=== PATIENT | female | born 1995 | race Caucasian/White ===

== ENCOUNTER 2023-05-30 04:31 | Inpatient (IN) | payer OTHER, SELFPAY ==
[2023-05-30] VITALS (113 sets, daily range): BP systolic 103–184; BP diastolic 42–107; PULSE 77–131; RESP 14–16; TEMP 36.4–37.1; O2SAT 88–100; BMI 35.5
[2023-05-30] MEDS: ONDANSETRON 2 MG/ML inj 4 MG IV (04:59)
[2023-05-30] MEDS: LACTATED RINGERS 1000 ML 1,000 ML 125 ML IV ×2 (05:00→16:51)
[2023-05-30] MEDS: AMPICILLIN 2 GM in 0.9 % SODIUM CHLORIDE Mini-bag 100 ML IVPB (05:09)
--- NOTE | 2023-05-30 05:41 | PM.ANBPRC ---
PFSH PFSH Social History Smoking Status: Never smoker Meds Home Medications and Allergies Allergies Allergy/AdvReac Type Severity Reaction Status Date / Time pimecrolimus [From Elidel] Allergy Hives Verified 05/30/23 05:35 mold Allergy respiratory Uncoded 05/30/23 05:35 distress oxycodone-acetaminophen Allergy Nausea, Uncoded 05/30/23 05:35 vomiting Results Vital Signs Vital Signs: Last Vital Signs Pulse 87 05/30/23 05:40 BP 142/82 H 05/30/23 05:40 Pulse Ox 98 05/30/23 05:37 Weight: 85.275 kg Height: 154.94 cm Anesthesia Procedures Intrathecal Patient Location: OB Start Time: 05:20 Stop Time: 05:50 Start Date: 05/30/23 Stop Date: 05/30/23 Reason for Block: primary anesthetic Patient Position: sitting Performed By: Cheo Cherry Preanesthetic Checklist: IV checked, risks and benefits discussed and anesthesia consent Prep: patient draped Monitoring: blood pressure monitoring, continuous pulse oximetry and heart rate Approach: midline Vertebral Space: lumbar (1-5) Needle Type: Sprotte Injection Technique: single-shot Needle gauge: 24 Needle Length (cm): 10 cm
--- NOTE | 2023-05-30 05:46 | SUR.ANES ---
medications for ITN were 0.6 mg 0.75%Marcaine and 20 mcg fentanyl
[2023-05-30] MEDS: TERBUTALINE 1 MG/ML INJ 0.25 MG SUBCUT (05:52)
--- NOTE | 2023-05-30 06:21 | PM.OBCN1 ---
OB - CN: HPI Date of Consult Time Seen by Provider: 06:15 Date Seen: 05/30/23 Patient: [facility] Patient Consult date: 05/30/23 Requesting Physician: Alysha Sinha MD Primary Care Provider: Alysha Sinha MD Consult Narrative Narrative: Reyna is a 27 year old at 39.5 weeks gestation that was admitted to the Center on 05/30/23 for active labor. I was called at 0550 notifying that there was a Code White being called for the patient for prolonged deceleration after IT placement. Patient had made rapid change from 5 cm to 8 cm. She is actively checo so I asked for Terbutaline 0.25 mg to be given for tocolysis. By the time I presented to the OR at 0605, strip was cat I, baseline 140s bpm, moderate variability, no deceleration. [place] quiescent with good response to terbutaline. I reviewed her NST: strip was overall cat I prior to 5 minutes prolonged deceleration at 0543 - jessica at 70 bpm. I anticipate deceleration was due to rapid cervical change. This was discussed with patient. Given that she has Cat I strip presently, decision was made to continue expectant management. Rest of care per our family medicine team with OB available for consult. Signed out to Dr. Gaspar, who will be here at 0700. History History 1 Elective abortions Para 0 Spontaneous abortions Hx # Term Pregnancies Ectopic pregnancies Hx # Pregnancies Multiple births Number of Living Children 0 Labs GBS status: positive OB Labs: Lab Assessment Start: 05/30/23 04:41 Freq: ONCE Status: Active Protocol: PC.OBGBS Activity Type Activity Date Activity User E-sign Co-sign Detail Recorded Client Recorded Date Recorded By Document 05/30/23 05:42 [facility] [id number] 05/30/23 05:43 [facility] 05/30/23 05:42 Lab Assessment Maternal Blood Type A Maternal RH Factor Positive Evaluate Maternal Rubella Immune Status Immune Hepatitis B Surface Antigen Negative Maternal HIV Status Negative Maternal Syphillis (RPR) Status Negative [facility] Social History Smoking Status: Never smoker Meds Home Medications and Allergies Allergies Allergy/AdvReac Type Severity Reaction Status Date / Time pimecrolimus [From Elidel] Allergy Hives Verified 05/30/23 05:35 mold Allergy respiratory Uncoded 05/30/23 05:35 distress oxycodone-acetaminophen Allergy Nausea, Uncoded 05/30/23 05:35 vomiting OB - H&P: Exam Physical Exam: Vital signs: Pulse BP Pulse Ox 86 142/67 H 98 05/30/23 05:45 05/30/23 05:45 05/30/23 05:37
--- NOTE | 2023-05-30 06:24 | PM.OBHPLI ---
OB - H&P: HPI Labor/Induction History of Present Illness Time Seen by Provider: 05:40 Date Seen: 05/30/23 Chief Complaint: The patient is a 27 year old 1 para 0 at 39.5 weeks gestation by 1st trimester ultrasound, who presents with contractions starting about 2 am. Chief complaint: Maternity : 1 Para: 0 Narrative: Reyna Garcia is a 27 year old female Comments: She has had an uncomplicated to date. She has felt well. She woke up about 2 am with the onset of painful contractions. She has felt good movement. No leaking fluid. No fevers. No headaches. History of Present Dating criteria: based on 1st trimester US only care: good care Ultrasounds: normal 1st trimester US Medical complications: none Labs Blood type: A (+) positive Rubella: immune RPR/VDLR: nonreactive GBS status: positive HBsAG: negative Review of Systems Status of ROS: Reports: 6 or more systems reviewed and unremarkable except as noted in History and below Meds Home Medications and Allergies Allergies Allergy/AdvReac Type Severity Reaction Status Date / Time pimecrolimus [From Elidel] Allergy Hives Verified 05/30/23 05:35 mold Allergy respiratory Uncoded 05/30/23 05:35 distress oxycodone-acetaminophen Allergy Nausea, Uncoded 05/30/23 05:35 vomiting OB - H&P: Exam Physical Exam: Vital signs: Pulse BP Pulse Ox 86 142/67 H 98 05/30/23 05:45 05/30/23 05:45 05/30/23 05:37 Constitutional: Constitutional: no acute distress Routine Chest/Breast/Axilla Exam: Chest wall: Absent tenderness Routine Respiratory Exam: Respiratory: Present CTA bilaterally Routine Cardiovascular Exam: Cardiovascular: RRR, S1 and S2 Detailed Labor and Delivery Exam: Patient Gravid: Yes Dilation (cm): 8 Effacement (%): 90 Cervix position: anterior Consistency: soft Tachysystole: No Contraction intensity: Strong/Firm Fetus (Single): Station: 0 Amniotic Membrane Status: intact Monitor Accelerations: Present Monitor Decelerations: None Routine Extremities Exam: Extremities: Absent calf tenderness Routine Neurological Exam: Present alert and oriented X3 OB - Problem Based A/P Additional Plan (1) Spontaneous onset of labor: Status: Acute Plan She was 4 cm on admission and quickly progressed to 8 cm. She felt pressure and was very uncomfortable so she got an ITN with great improvement in her pain. Shortly after this she had a deceleration to the 60s that continued for 5 minutes despite 3 position changes. Cervix was unchanged at 8 cm with a bulging bag. A code white was called and she was taken to the OR. A dose of terbutaline was given. She was put on the monitor in the OR and was found to be in the 130s. Strip was reassuring and category 1. OB consulted and felt patient was ok to transfer back to the room. An epidural was placed. Expectant management planned with anticipated. Delivery/Labor/Induction Plan Plan: expectant management
--- NOTE | 2023-05-30 06:52 | P.ANBPRC_ITS ---
PFSH PFSH Social History Smoking Status: Never smoker Meds Home Medications and Allergies Allergies Allergy/AdvReac Type Severity Reaction Status Date / Time pimecrolimus [From Elidel] Allergy Hives Verified 05/30/23 05:35 mold Allergy respiratory Uncoded 05/30/23 05:35 distress oxycodone-acetaminophen Allergy Nausea, Uncoded 05/30/23 05:35 vomiting Results Vital Signs Vital Signs: Last Vital Signs Pulse 86 05/30/23 05:45 BP 142/67 H 05/30/23 05:45 Pulse Ox 98 05/30/23 05:37 Weight: 85.275 kg Height: 154.94 cm Anesthesia Procedures Epidural Insertion Patient Location: OR Start Time: 06:20 Stop Time: 06:50 Start Date: 05/30/23 Stop Date: 05/30/23 Reason for Block: primary anesthetic Patient Position: sitting Performed By: Cheo Cherry Preanesthetic Checklist: IV checked, risks and benefits discussed, surgical consent, monitors and equipment checked, pre-op evaluation, timeout performed and anesthesia consent Prep: chlorhexidine gluconate Monitoring: blood pressure monitoring, quality assurance monitor body, continuous pulse oximetry and heart rate Approach: midline Vertebral Space: lumbar (1-5) Needle Type: Tuohy needle Injection Technique: continuous catheter Needle gauge: 17 Needle Length (cm): 10 cm Needle Insertion Depth (cm): 6 Catheter Gauge: 19 Catheter Type: multi-orifice Catheter at skin depth (cm): 12 Test Dose Result: negative and lidocaine 1.5% with epinephrine 1 to 200,000 Events: other
[2023-05-30] MEDS: LIDOCAINE 2% (PF) 5 ML VIAL EPIDURAL (07:28)
[2023-05-30] MEDS: ROPIVACAINE 0.2% 100 ml 100 ML 12 MG EPIDURAL (07:29)
[2023-05-30] MEDS: AMPICILLIN 1 GM in 0.9 % SODIUM CHLORIDE Mini-bag 100 ML IVPB (08:40)
--- NOTE | 2023-05-30 10:22 | PM.OBPNL ---
Subjective Date Seen: 05/30/23 Narrative: Reyna is doing well, she is comfortable with an epidural, not feeling contractions or pressure. On last cervical check, she was noted to have a forebag which was ruptured with moderate meconium stained fluid. Objective Exam: No acute distress Vital Signs: Last Vital Signs Temp 97.6 F 05/30/23 04:47 Pulse 105 H 05/30/23 10:17 Resp 16 05/30/23 04:47 BP 137/63 05/30/23 10:17 Pulse Ox 97 05/30/23 08:12 Pelvic Exam Dilation (cm): 9.5 Effacement (%): 100 Station: 0 Contractions Monitor mode: External Contraction Frequency: 5 minutes Contraction pattern: Regular Contraction intensity: Strong/Firm Assessment Assessment: active labor Station: 0 Amniotic Membrane Status: SROM Status: Category ll Heart Rate Baseline: 145 Longterm Variability: Moderate (6-25) Monitor Accelerations: Absent Monitor Decelerations: Variable Plan Plan: Continue expectant management. Anticipate .
--- NOTE | 2023-05-30 11:15 | PM.OBPNL ---
Subjective Date Seen: 05/30/23 Narrative: Reyna has been still pain free with epidural, still with a rim of cervix left. Attempted positional changes with FHR dropping to 90s for several minutes, finally recovered while she is on hand and knees. ventilating equipment installer on unit. Objective Vital Signs: Last Vital Signs Temp 98.7 F 05/30/23 08:46 Pulse 102 H 05/30/23 11:03 Resp 16 05/30/23 04:47 BP 138/63 05/30/23 11:03 Pulse Ox 99 05/30/23 11:14 Pelvic Exam Dilation (cm): 9.5 Effacement (%): 100 Station: +1 Contractions Monitor mode: External Contraction pattern: Regular Contraction intensity: Strong/Firm Assessment Assessment: active labor Station: +1 Amniotic Membrane Status: SROM Status: Category ll Heart Rate Baseline: 145 Adz Worker Variability: Moderate (6-25) Monitor Accelerations: Present Monitor Decelerations: None Plan Plan: Once mom is ready to move back to her back or side from hands and knees, will try pushing to see if FHTs tolerate pushing. OB consulted and on unit in the event section is necessary.
[2023-05-30] MEDS: LACTATED RINGERS 1000 ML 1,000 ML 1125 ML IV (11:28)
[2023-05-30] MEDS: PHENYLEPHRINE 100 MCG/ML SYRINGE IVP (12:14)
--- NOTE | 2023-05-30 12:49 | PM.OBPNL ---
Subjective Time Seen by Provider: 12:49 Date Seen: 05/30/23 Narrative: Patient has been pushing x 1 hour with good results. Unfortunately, baby only tolerates labor with mom on hands and knees. Had another (3rd) prolonged decel. Code white was considered, but baby recovered. Given this is the 3rd prolonged decel today we have consulted Dr. Gaspar (EDUCATION PROGRAM SPECIALIST) Objective Exam: Complete, +1 station Vital Signs: Last Vital Signs Temp 98.7 F 05/30/23 08:46 Pulse 105 H 05/30/23 12:47 Resp 16 05/30/23 04:47 BP 144/80 H 05/30/23 12:47 Pulse Ox 98 05/30/23 12:39 Pelvic Exam Dilation (cm): 10 Effacement (%): 100 Station: +1 Contractions Monitor mode: External Contraction pattern: Regular Contraction intensity: Strong/Firm Pitocin Rate (mU/min): 0 Assessment Assessment: active labor Station: +1 Amniotic Membrane Status: SROM Status: Category ll Heart Rate Baseline: 145 Diesel Fleet Mechanic Variability: Moderate (6-25) Monitor Accelerations: Present Monitor Decelerations: None Tracing Comments: Has had 3 prolonged decels during labor today Plan Plan: - given 3 prolonged decels with difficulty recovering, we have discussed options with patient. At this time, she elects to move to for intolerance of labor. - I will attend for support of baby given unscheduled and meconium fluid
--- NOTE | 2023-05-30 12:55 | PM.OBCN1 ---
OB - CN: HPI Date of Consult Date Seen: 05/30/23 Patient: Kalli Patient Consult date: 05/30/23 Requesting Physician: Alysha Sinha MD Primary Care Provider: Alysha Sinha MD Consult Narrative Reason for consult: nonreassuring FHTs Narrative: The patient is a 27 year old G 1 P 0 at 39 5/7 weeks gestation that was admitted to the [facility] on 05/30/23 for labor. Has now had 3 episodes of prolonged bradycardia. Between episodes, the heart rate tracing has been generally reassuring but category 2. Maternal repositioning has been tried, and the fetus seems to only respond well to maternal hands knees positioning. The patient has now been actively pushing for an hour. The patient has no significant medical or surgical history. History of Present Dating criteria: based on LMP care: good care Ultrasounds: normal 1st trimester US and normal mid trimester US History History 1 Elective abortions Para 1 Spontaneous abortions Hx # Term Pregnancies Ectopic pregnancies Hx # Pregnancies Multiple births Number of Living Children 0 Labs Blood type: A (+) positive Rubella: immune RPR/VDLR: nonreactive GBS status: positive HBsAG: negative OB Labs: Lab Assessment Start: 05/30/23 04:41 Freq: ONCE Status: Active Protocol: PC.OBGBS Activity Type Activity Date Activity User E-sign Co-sign Detail Recorded Client Recorded Date Recorded By Document 05/30/23 05:42 [facility] [id number] 05/30/23 05:43 [facility] 05/30/23 05:42 Lab Assessment Maternal Blood Type A Maternal RH Factor Positive Evaluate Maternal Rubella Immune Status Immune Hepatitis B Surface Antigen Negative Maternal HIV Status Negative Maternal Syphillis (RPR) Status Negative Review of Systems Status of ROS: Reports: 6 or more systems reviewed and unremarkable except as noted in History and below [facility] Social History What is your current living situation?: I presently have a place to live Problems where you live: no known problems In the past 12 months, utilities in danger of being shut off: no In past 12 months, lack of transportation kept you from medical appts, meetings, work, or getting things needed for daily living: no In the past 12 mos, have been you worried that your food would run out before you had money to buy more?: never true In the past 12 mos, the food you bought just didn't last and you didn't have money to buy more?: never true Smoking Status: Never smoker How often does anyone, including family, friends and others, physically hurt you: never How often does anyone, including family, friends and others, insult or talk down to you: never How often does anyone, including family, friends and others, threaten you with harm: never How often does anyone, including family, friends and others, scream or curse at you: never Meds Home Medications and Allergies Allergies Allergy/AdvReac Type Severity Reaction Status Date / Time pimecrolimus [From Elidel] Allergy Hives Verified 05/30/23 05:35 mold Allergy respiratory Uncoded 05/30/23 05:35 distress oxycodone-acetaminophen Allergy Nausea, Uncoded 05/30/23 05:35 vomiting OB - H&P: Exam Physical Exam: Vital signs: Temp Pulse Resp BP Pulse Ox 98.7 F 105 H 16 144/80 H 98 05/30/23 08:46 05/30/23 12:47 05/30/23 04:47 05/30/23 12:47 05/30/23 12:39 Constitutional: Constitutional: no acute distress Detailed Labor and Delivery Exam: Patient Gravid: Yes Dilation (cm): 10 Cervix position: mid Consistency: soft Tachysystole: No Contraction intensity: Strong/Firm Fetus (Single): Station: 0 Amniotic Membrane Fluid Description: Meconium Stained Monitor Accelerations: Episodic Monitor Decelerations: Variable Talent Acquisition Associate Variability: Minimal (3-5) OB - CN: A/P Assessment and Plan (1) Spontaneous onset of labor: Status: Acute (2) bradycardia during labor: Status: Acute Plan The patient has had 3 episodes of prolonged bradycardia, with category 2 tracing between. On examination, she is still remote from delivery in the station is too high to safely consider operative vaginal delivery. Would recommend consideration of delivery, under controlled circumstances, before the need is emergent. We discussed the delivery process, the anticipated hospital stay, and postoperative pain management. We discussed the relative risks and benefits of section, risks including, but not limited to, bleeding, blood transfusion, infection, injury to other organs, or injury to . Informed consent was obtained for the procedure. Operating room staff and Anesthesia were notified. Dr. Sinha will be present for immediate evaluation of the at the time of delivery.
--- NOTE | 2023-05-30 14:40 | PM.OBPRCCS ---
Procedure Date of procedure: 05/30/23 Pre-op diagnosis: 39 5/7 weeks gestation, intolerance of labor Post-op diagnosis: same Procedure Done: only Will [facility] bill your pro fee for this procedure?: Yes Blood Loss Measurement Type: QBL (939 mL) Bakri Used: No IV fluids (mL): 1,400 Urine Output (mL): 150 Surgeon: Shamika Gaspar MD Anesthesia Type: Epidural Findings: Live-born male , cephalic presentation, Apgars 7 and 8 at 1 and 5 minutes respectively, weight 8 lb 8 oz. thick meconium-stained amniotic fluid. Normal-appearing uterus, tubes, and ovaries. Procedure Name: Primary low transverse section. Procedure Description: After obtaining informed consent, the patient was taken to the operating room where epidural anesthesia was obtained and found to be adequate. She was prepared and draped in the normal sterile fashion in the dorsal supine position with a leftward tilt. A Pfannenstiel skin incision was made with a scalpel. This incision was carried down to the underlying layer of fascia with the Bovie. The fascia was incised in the midline and the incision extended laterally. The superior and inferior aspects of the fascial incision were grasped with Monster clamps, elevated and the underlying rectus muscles dissected off sharply. The rectus muscles were then in the midline. The Zane O retractor was then placed into the incision. The lower uterine segment was then incised in a transverse fashion with the scalpel. Upon entry into the uterus, meconium-stained amniotic fluid was noted. The uterine incision was extended laterally with blunt finger fractionation. The infant's head was found to be low, impacted in the pelvis. An RN applied cephalad pressure to the vertex through the vagina, while I attempted to flex the neck and elevate the head to the level of the hysterotomy incision. At this point, the 's left arm and shoulder delivered, and I was unable to deliver the head, which was now in the maternal left lower quadrant. I attempted to push the left arm and shoulder back into the uterus, and still was unable to deliver the vertex. At this point, I was able to again replace the left shoulder and arm into the uterus, and I rotated the fetus within the uterus to a back up breech position. Then I delivered the breech, followed by both legs, the torso, then both arms and the head while maintaining flexion of the neck. The nose and mouth were suctioned with the bulb suction. The cord was doubly clamped and cut, and the infant was handed off the field to Dr. Sinha for evaluation. The placenta was delivered spontaneously with umbilical cord traction and fundal massage. The uterus was cleared of all clots and debris. The uterine incision was reapproximated in a running locking fashion with a 0 chromic suture. There was some active bleeding noted from a disrupted branch of the uterine artery on the left side. This was isolated with a right angle clamp and suture ligated with a free tie of 0 Vicryl. There was a rent in the broad ligament on the left which was reapproximated with an interrupted suture of 3-0 chromic. A 2nd layer 0 chromic was used to imbricate the hysterotomy incision in a horizontal fashion. Clots were removed. The hysterotomy incision appeared hemostatic. There was some bleeding noted from peritoneal edges that was controlled with electrocautery were necessary. Lefty was placed over the raw surfaces. All instruments and retractors were removed. The anterior peritoneum was reapproximated in a running fashion with a 3-0 Vicryl suture. The subfascial tissues were carefully inspected and hemostasis assured. The fascia was reapproximated in a running fashion with a looped 0 Maxon suture. The subcutaneous tissues were copiously irrigated. Hemostasis was assured. The skin was closed in a subcuticular fashion with 4-0 Vicryl. LiquiBand and dressing were applied. The patient tolerated the procedure well. Sponge, lap, needle, and instrument counts were reported as correct x2. The patient was taken to the recovery room, awake, and in stable condition. She did receive 2 grams of IV Ancef preoperatively, 500 mg IV azithromycin, and 1000 mg tranexamic acid intraoperatively. Complications: None. Pathology: specimen obtained, sent to pathology (Placenta) Condition: stable Disposition: floor
--- NOTE | 2023-05-30 15:01 | W.ANESCHARGE ---
Anesthesia Charges Start Date/Time Anesthesia Start Date: 05/30/23 Anesthesia Start Time: 13:01 Stop Date/Time Anesthesia Stop Date: 05/30/23 Anesthesia Stop Time: 14:46 Summary Emergency: FOOD SERVICE DIRECTOR
[2023-05-30] MEDS: AZITHROMYCIN 500 MG in 0.9 % SODIUM CHLORIDE 250 ml 250 ML 255 MG IVPB (15:32)
--- NOTE | 2023-05-30 16:11 | P.NB_ITS ---
Nerve Block Nerve Block Time Seen by Provider: 14:40 Type of block requested by surgeon for post-operative analgesia: TAP Side: bilateral Time out performed: Yes Verification of patient name: Yes Verification of date of : Yes Site marking: site marked Name of person performing procedure: sarah Manty Continuous monitoring Was continuous monitoring of O2 sat, B/P, cutter grind tool technician, recorded every 15 minutes?: Yes Procedure Checklist: sterile prep, needles and gloves Ultrasound guided. Images saved: Yes Medications given in 5ml increments after negative aspiration: Marcaine %: 0.25 mL: 30 and Exparel mL: 10 Patient tolerated procedure well: Yes Block Charges Block Charge (with Pro Fee): TAP Bilateral Use of Ultrasound Machine for Block: Yes- US Guidance/pain block
[2023-05-30] MEDS: ONDANSETRON 2 MG/ML inj 4 MG IVP (17:42)
[2023-05-30] MEDS: KETOROLAC 30 MG/ML inj IVP (20:08)
[2023-05-31] VITALS (18 sets, daily range): BP systolic 109–116; BP diastolic 61–69; PULSE 89–99; RESP 15–16; TEMP 36.8–36.9; O2SAT 94–98
[2023-05-31] MEDS: KETOROLAC 30 MG/ML inj IVP ×4 (01:21→18:42)
[2023-05-31 06:44] LABS: Hemoglobin* 9.1 gm/dL (12.0-16.0)
--- NOTE | 2023-05-31 07:23 | PM.OBPNVD1 ---
OB - PN:Subj Subjective Time Seen by Provider: 07:24 Date Seen: 05/31/23 Interval history: Reyna is a 27 y.o. who was admitted to [facility] for labor.? She had an uncomplicated primary .? ? ? Narrative: The patient feels well.? The pain is well controlled with current medications.? She does have some recent onset right calf pain. She states this feels more like muscle soreness.? She is breast feeding and reports things are going ok. Is having a hard time getting baby to latch r/t sleepiness.? the patient has done well.? Vitals have been stable.? She has remained afebrile.? Has a good appetite, is tolerating a general diet.? She is voiding without difficulty.? She is passing gas and has not had a bowel movement.? She is ambulating and denies any dizziness.? Has Small amount of rubra lochia.? OB - PN: Obj Exam Physical Exam: Vital signs: Temp Pulse Resp BP Pulse Ox O2 Del Method 98.3 F 99 16 113/65 97 Room Air 05/31/23 05:45 05/31/23 05:45 05/31/23 06:10 05/31/23 05:45 05/31/23 05:45 05/31/23 05:45 Narrative: VSS.? Afebrile? GENERAL APPEARANCE:? normal affect, alert, no distress? MOOD:? appropriate? HEENT: normocephalic, neck supple, full ROM? CHEST:? Symmetrical chest wall movement.? Normal respiratory effort.? Clear to auscultation? HEART:? regular rate and rhythm? ABDOMEN:? soft, non-tender. Uterine fundus is firm, at Umbilicus, Midline and is appropriate for the stage of recovery.? Bowel sounds present.? EXTREMITIES:? normal and +1 edema. Right calf: no warmth or redness noted. Neg homans. SKIN: warm, dry.? Dressing on, clean/dry/intact.? No signs of infection noted.? Urinary Catheter Management: Urethral: Cath placed during this visit: yes Urethral indwelling: No Reason for continuing: surgical procedure Insertion date: 05/30/23 Insertion time: 12:55 OB - PN: Obj Data Labs Labs: Laboratory Results - last 24 hr 05/31/23 06:30 Hgb 9.1 L OB - PN: A/P Delivery Assessment and Plan (1) Status post primary low transverse section: Status: Acute (2) Lactating mother: Status: Acute (3) Right calf pain: Status: Acute (4) bradycardia during labor: Status: Acute Plan day: 1 Plan: routine care Comments: Assessment/Plan? G 1 P 1 status post uncomplicated primary .? ?? 1.? Continue route PP cares? 2.? .? May see if desired? 3.? Anticipate discharge home tomorrow or the following day per pt preference? 4.? Acute anemia.? Iron supplement ordered 5. Right calf pain. No redness, warmth. Neg homans. Low suspicion for DVT, but u/s order to r/t since she is and post op. ?
[2023-05-31] MEDS: DOCUSATE SODIUM 100 MG CAPSULE PO (08:04)
[2023-05-31] MEDS: FERROUS SULFATE 325 MG TABLET PO (08:04)
--- NOTE | 2023-05-31 09:15 | CRLHL7_ITS ---
For Patients: As a result of the Century Cures Act, medical imaging exams and procedure reports are released immediately into your electronic medical record. You may view this report before your referring provider. If you have questions, please contact your health care provider. INDICATION: Right leg pain. TECHNIQUE: Ultrasound venous duplex lower right extremity. Compression venous exam was performed using harman-scale, color Doppler, and spectral Doppler analysis. COMPARISON: None. FINDINGS: Deep veins: Sonographic imaging demonstrates the right common femoral, deep femoral, superficial femoral, popliteal, posterior tibial, peroneal and contralateral left common femoral veins to be fully compressible with normal color Doppler blood flow. Superficial veins: Greater saphenous vein is fully compressible. No popliteal cyst. IMPRESSION: No evidence of DVT. Dictated by Hector Gibbs MD @ 05/31/2023 9:06:10 AM (Electronically Signed)
[2023-06-01 00:16] VITALS: BP 127/76; PULSE 99; RESP 18; TEMP 36.6; O2SAT 98
[2023-06-01] MEDS: IBUPROFEN 600 MG TABLET PO (03:23)
[2023-06-01] MEDS: ACETAMINOPHEN 500 MG TABLET 1000 MG PO (06:15)
--- NOTE | 2023-06-01 07:30 | PM.OBDSVD1 ---
DS: Providers Provider Date Seen: 06/01/23 Date of admission: 05/30/23 04:31 Primary care physician: Alysha Sinha MD Admitting Clinician: Shamika Gaspar MD Attending Physician on discharge: Scarlett Inman CNM Date of Discharge: 06/01/23 DS: Diagnosis Discharge Diagnosis (1) care and examination immediately after delivery: Status: Acute (2) Lactating mother: Status: Acute (3) Status post primary low transverse section: Status: Acute Exam Narrative: Exam Narrative: VSS. ?Afebrile GENERAL APPEARANCE: ?normal affect, alert, no distress MOOD: ?appropriate HEENT: normocephalic, neck supple, full ROM CHEST: ?Symmetrical chest wall movement. ?Normal respiratory effort. ?Clear to auscultation HEART: ?regular rate and rhythm ABDOMEN: ?soft, non-tender. Uterine fundus is firm, at Umbilicus, Midline and is appropriate for the stage of recovery. ?Bowel sounds present. EXTREMITIES: ?normal and no edema SKIN: warm, dry. ? ?Incision clean/dry/well approximated. ?No signs of infection noted. Const: Vital Signs, click to edit/add: Vital Signs - 24 hr 05/31/23 08:01 05/31/23 08:10 05/31/23 09:10 Temperature 98.3 F Pulse Rate [Pulse Oximeter] 95 Respiratory Rate 16 15 16 Blood Pressure [Ri ght Arm] 109/66 Pulse Oximetry 94 Oxygen Delivery Me thod Room Air 05/31/23 10:10 05/31/23 11:10 05/31/23 12:00 Temperature 98.4 F Pulse Rate [Pulse Oximeter] 89 Respiratory Rate 16 15 16 Blood Pressure [Ri ght Arm] 112/61 Pulse Oximetry 95 Oxygen Delivery Me thod Room Air 05/31/23 12:10 05/31/23 13:10 06/01/23 00:16 Temperature 97.9 F Pulse Rate [Pulse Oximeter] 99 Respiratory Rate 16 16 18 Blood Pressure [Ri ght Arm] 127/76 Pulse Oximetry 98 Oxygen Delivery Me thod Room Air Documenting provider has reviewed patient's vital signs: yes OB - DS: Summary Hospital Course Hospital Course: Reyna is a 27 year old G 1 P 1 at 39.5 weeks gestation that was admitted to the Center on 05/30/23 for labor. She had an uncomplicated delivery. She delivered a viable male infant. the patient has done well. The patient feels well.? The pain is well controlled with current medications.? She has no new complaints.? Urinary output is adequate and she is voiding without difficulty.? Has a good appetite, is tolerating a general diet, is passing flatus, and has not yet had a bowel movement.? Has scant amount of rubra lochia.? She is ambulating well. She is and reports she is having difficulty latching on one side. She would like to see before discharge today.?Reyna has not been using oxycodone while in the hospital as she had a strong reaction to narcotics in the past with Percocet. This was listed as an allergy for her although when talking with her about her reaction it is likely that she was having normal side effects of dizziness and feeling out of it after taking. After discussing this with her she agreed to have a prescription sent for a small amount of oxycodone to try at home if she has an increase in her pain that is not managed with Tylenol and ibuprofen. Peripartum Data delivery method: Primary C/S; Labored Laceration description: None Procedures: Procedures Operation Date: 05/30/23 13:15 Actual Procedure Side Surgeon p Section Shamika Gaspar MD complications: none [place] Gender: Male Infant Discharge Plan: Home Status at Discharge Functional status at discharge: independent ambulation Overall status at discharge: patient is progressing back to baseline Time Spent with Patient Time attestation: Total time spent providing and/or coordinating discharge services: Time spent: Less than 30 minutes Discharge Plan Discharge Disposition: Home, Self-Care Date of Admission: 05/30/23 04:31 Attending Provider on Discharge: Scarlett Inman Primary Care Provider: Alysha Sinha Condition: Stable Anticipated Discharge Date/Time: 06/01/23 12:00 Discharge Medications: New acetaminophen 500 mg Tablet 1,000 mg PO Q6H PRN (Reason: Pain) Qty: 0 0RF ferrous sulfate 325 mg (65 mg iron) Tablet 325 mg PO Q48H Qty: 60 1RF docusate sodium 100 mg Capsule 100 mg PO DAILY Qty: 90 2RF ibuprofen 600 mg Tablet 600 mg PO Q6H PRN (Reason: Pain) Qty: 60 1RF oxycodone 5 mg Tablet 5 - 10 mg PO Q4H PRN (Reason: Pain) Qty: 10 0RF Continued PNV cmb#[id number]-ferrous fumarate-FA [] 28 mg iron- 800 mcg tablet 1 tab PO DAILY calcium carbonate [Antacid (calcium carbonate)] 200 mg calcium (500 mg) tablet,chewable 200 mg PO QID albuterol sulfate 90 mcg/actuation aerosol powdr breath activated 2 inh inhalation Q4-6H PRN Discharge Orders: Discharge Order (Routine); Ordered 06/01/23 Ordered By: Scarlett Inman Patient Education: OB /Breast Feeding, OB Over the Counter Medication Information Additional Instructions: Discharge instructions were reviewed with the patient including signs and symptoms of infection and home going medications Lifting Restrictions: 20 pounds for 6 weeks No not submerge incision under water X 2 weeks? Nothing vaginally for 6 weeks: no tampons or intercourse Do not drive while taking narcotic pain medication(s) Off Work or School for 6 weeks 2-week visit: incision check, discuss feeding concerns, review control options and screen for anxiety/depression. 6-week visit for an annual exam. consultation services are available to all mothers and babies for the first year after delivery.? To make an appointment, please call [phone]. Activity Level: Activity as Tolerated Discharge Diet: Regular Follow Up Appointments: Alysha Sinha MD [Primary Care Provider] - Forms: [employer] Info Instructions
[2023-06-01 08:00] VITALS: BP 119/71; PULSE 81; RESP 16; TEMP 36.7; O2SAT 96
== END 2023-06-01 10:47 | disposition home or self-care (01) | DRG 788 ==
LOC: OB OUT 04:31 → OB 04:31
PROVIDERS: Admitting Provider Surgery; PCP Family Medicine; Visit Provider Obstetrics & Gynecology
PROC: 10D00Z1 Extraction of Products of Conception, Low, Open Approach (ICD-10-PCS; CPT 59514; principal; 2023-05-30 13:00)
DX: O77.1 Fetal stress in labor or delivery due to drug administration (principal); O77.0 Labor and delivery complicated by meconium in amniotic fluid; Z3A.39 39 weeks gestation of pregnancy; Z37.0 Single live birth; G89.18 Other acute postprocedural pain; O90.81 Anemia of the puerperium; M79.661 Pain in right lower leg; O76 Abnormality in fetal heart rate and rhythm complicating labor and delivery
CPT/HCPCS: 01967; 01968; 36415; 64488; 76942; 85018; 86850; 86900; 86901; 88307; 93971; 99140; A9270; C9290; J0290; J0456; J0665; J1100; J1885; J2274; J2371; J2405; J2795; J3010; J3105; J7050; J7120